=== PATIENT | male | born 1950 | race Caucasian/White ===

== ENCOUNTER 2016-04-28 21:43 | Outpatient (CLI) | payer OTHER | END 2016-04-28 21:44 | disposition home or self-care (01) | DX: G47.33 Obstructive sleep apnea (adult) (pediatric) (principal); G47.61 Periodic limb movement disorder; Z68.27 Body mass index [BMI] 27.0-27.9, adult ==

== ENCOUNTER 2016-05-19 11:11 | Outpatient (CLI) | payer OTHER | END 2016-05-19 11:12 | disposition home or self-care (01) | LOC: SC 11:11 | PROVIDERS: ATTEND Nurse Practitioner Family | DX: G47.33 Obstructive sleep apnea (adult) (pediatric) (principal); G47.61 Periodic limb movement disorder | CPT/HCPCS: 99212; 99214 ==

== ENCOUNTER 2016-06-15 19:30 | Outpatient (CLI) | payer OTHER | END 2016-06-15 19:31 | disposition home or self-care (01) | DX: G47.33 Obstructive sleep apnea (adult) (pediatric) (principal); G47.61 Periodic limb movement disorder; Z68.27 Body mass index [BMI] 27.0-27.9, adult ==

== ENCOUNTER 2016-07-06 09:14 | Outpatient (CLI) | payer OTHER | END 2016-07-06 09:15 | disposition home or self-care (01) | DX: G47.33 Obstructive sleep apnea (adult) (pediatric) (principal) ==

== ENCOUNTER 2016-08-16 09:13 | Outpatient (CLI) | payer OTHER | END 2016-08-16 09:14 | disposition home or self-care (01) | LOC: SC 09:13 | PROVIDERS: ATTEND Internal Medicine Pulmonary Disease | DX: G47.33 Obstructive sleep apnea (adult) (pediatric) (principal) | CPT/HCPCS: 99212; 99213 ==

== ENCOUNTER 2016-10-04 15:15 | Outpatient (CLI) | payer OTHER | END 2016-10-04 15:16 | disposition home or self-care (01) | LOC: SC 15:15 | PROVIDERS: ATTEND Internal Medicine Pulmonary Disease | DX: G47.33 Obstructive sleep apnea (adult) (pediatric) (principal) | CPT/HCPCS: 99212; 99213 ==

== ENCOUNTER 2016-12-20 15:11 | Outpatient (CLI) | payer OTHER | END 2016-12-20 15:12 | disposition home or self-care (01) | LOC: SC 15:11 | PROVIDERS: ATTEND Internal Medicine Pulmonary Disease | DX: G47.33 Obstructive sleep apnea (adult) (pediatric) (principal) | CPT/HCPCS: 99212; 99213 ==

== ENCOUNTER 2017-02-21 14:27 | Outpatient (CLI) | payer OTHER | END 2017-02-21 14:28 | disposition home or self-care (01) | LOC: SC 14:27 | PROVIDERS: ATTEND Internal Medicine Pulmonary Disease | DX: G47.33 Obstructive sleep apnea (adult) (pediatric) (principal) | CPT/HCPCS: 99212; 99213 ==

== ENCOUNTER 2019-01-23 11:23 | Outpatient (CLI) | payer MEDICARE, OTHER ==
--- NOTE | 2019-01-23 12:50 | SLEEP CARE CONSULTATION ---
Information from patient questionnaire entered by Kristie Lees. I have reviewed and concur with the information entered by Kristie Lees. This document represents the service I personally performed and the decisions made by me, Raissa Pa MD, [facility]. History of Present Illness Previous diagnosis: Moderate, Obstructive Sleep Apnea-Hypopnea Syndrome AHI: 21.6 Reason for CPAP/BiPAP follow up: annual Equipment type: CPAP Equipment obtained from: [employer] Mask style: Nasal Mask brand: Respironics HPI additional information: HPI: Mr. Uriarte was diagnosed to have moderate obstructive sleep apnea- hypopnea syndrome and returns today for follow up of CPAP therapy. The patient gets his supplies from [employer]. He wears a Respironics DreamWear nasal cushion mask. He continues to use the device nightly and all through the night. The compliance report shows that he uses the device 162 nights out of the past 180 nights, averaging 5.9 hours a night. He complains of air leaking into his right eye, but no particular problem with the device such as soreness on the face, dry nose, epistaxis, nasal congestion or headache. He thinks that the pressure of 9 - 15 cmH2O is too strong (increased from 8 12 cmH2O two years ago for elevated residual AHI of 13.2). On the CPAP therapy he notices improvement in his sleep quality, and that he wakes up feeling fresher in the morning and more awake/alert during the day. His notices no snore at all. [place] Sleepiness Scale score is 4. The average residual AHI is now 14.2; and average time in large leak per day is 6 seconds. The 90th percentile pressure is 12.5 cmH2O. CPAP Compliance Data - Data Reviewed with Patient Average duration of nightly device use: 5.9 Compliance rate %: 78.9 (180 days) Current pressure setting (cmH2O): 9-15 Humidity settin Heated hose settin Average residual AHI: 14.2 Average large leak: 6 secs Subjective Patient concerns: reports: air blowing in eyes, dry mouth, nose, throat Initial [place] Sleepiness Scale score: 7 Current [place] Sleepiness Scale score: 4 Allergies and Home Medications Drug allergies reviewed: Yes Home medication list reviewed: Yes Review of Systems Review of systems same as previous: Yes Physical Exam Weight: 185 lb Impression and Plan IMPRESSION: 1. Obstructive Sleep Apnea-Hypopnea Syndrome, moderate, with the patient continuing to do well on nasal CPAP therapy. He has excellent compliance and significant clinical benefits. The current pressure appears not quite effective and he complains of air coming out his right eye, probably through the tear duct. I will try the lower pressure range again at 5 - 10 cmH2 O. If the residual AHI remains high, another manual CPAP/BiPAP titration study will be ordered. PLAN: 1. Lower autoCPAP to 5 - 10 cm H2O via the modem. 2. Try a ResMed N30i mask. 3. Prescription made for supplies so that he may switch durable medical suppl ier. 4. Return in 2 months to check on pressure adjustment. I spent 100% of this 20 minute visit face to face with the patient with greater than 50% of this was spent time counseling the patient and coordination of care.
== END 2019-01-23 11:24 | disposition home or self-care (01) ==
LOC: SC 11:23
PROVIDERS: ATTEND Internal Medicine Pulmonary Disease
DX: G47.33 Obstructive sleep apnea (adult) (pediatric) (principal)
CPT/HCPCS: 99213; G0463; 99212

== ENCOUNTER 2019-03-27 08:56 | Outpatient (CLI) | payer MEDICARE, OTHER ==
--- NOTE | 2019-03-27 13:08 | SLEEP CARE CONSULTATION ---
Information from patient questionnaire entered by Kristie Lees. I have reviewed and concur with the information entered by Kristie Lees. This document represents the service I personally performed and the decisions made by me, Raissa Pa MD, [facility]. History of Present Illness Previous diagnosis: Moderate, Obstructive Sleep Apnea-Hypopnea Syndrome Reason for follow up: other (2 month) Equipment type: CPAP Equipment obtained from: [employer] Mask style: Nasal HPI additional information: HPI: Mr. Uriarte was diagnosed to have moderate obstructive sleep apnea- hypopnea syndrome and returns today for follow up of CPAP therapy after pressure change 2 months ago. The patient now gets his supplies from [employer] (was [facility]). He also switched from Respironics DreamWear nasal cushion mask to ResMed N30i mask. He continues to use the device nightly and all through the night. The compliance report shows that he uses the device 53 nights out of the past 60 nights, averaging 5.8 hours a night. He complained of air leaking into his right eye which resolved with dropping the pressure range from 9 15 cmH2O to 5 10 cmH2O. No particular problem with the device such as soreness on the face, dry nose, epistaxis, nasal congestion or headache. He thinks that the pressure of 5 10 cmH2O is comfortable. On the CPAP therapy he notices improvement in his sleep quality, and that he wakes up feeling fresher in the morning and more awake/alert during the day. His notices no snore at all. [place] Sleepiness Scale score is 2. The average residual AHI is now 20 (was 14.2); and average time in large leak per day is 1 second. The 90th percentile pressure is 9.9 cmH2O. CPAP Compliance Data - Data Reviewed with Patient Average duration of nightly device use: 5.75 Compliance rate %: 73.3 (60 days) Current pressure setting (cmH2O): 5-10 Humidity settin Heated hose settin Average residual AHI: 20.0 Average large leak: 1 sec Subjective Patient concerns: reports: dry mouth, nose, throat Initial [place] Sleepiness Scale score: 7 Current [place] Sleepiness Scale score: 2 Allergies and Home Medications Drug allergies reviewed: Yes Home medication list reviewed: Yes Review of Systems Review of systems same as previous: Yes Physical Exam Weight: 180 lb Impression and Plan IMPRESSION: 1. Obstructive Sleep Apnea-Hypopnea Syndrome, moderate, with the patient continuing to do well on nasal CPAP therapy. He has excellent compliance and significant clinical benefits. The current pressure appears less effective but prevented air leaking into his eyes via the tear ducts. I will raise the pressure up slight to 8 - 12 cmH2O. If he starts to have problems with his eyes again, I will lower it back down. PLAN: 1. Increase autoCPAP to 8 - 12 cm H2O. Prescription made. 2. Return for follow up in a year or earlier if there is any problem. He will call if the pressure does not feel right. I spent 100% of this visit face to face with the patient with greater than 50% of this was spent time counseling the patient and coordination of care.
== END 2019-03-27 08:57 | disposition home or self-care (01) ==
LOC: SC 08:56
PROVIDERS: ATTEND Internal Medicine Pulmonary Disease
DX: G47.33 Obstructive sleep apnea (adult) (pediatric) (principal)
CPT/HCPCS: 99213; G0463; 99212

== ENCOUNTER 2020-03-24 13:03 | Outpatient (CLI) | payer MEDICARE, OTHER ==
--- NOTE | 2020-03-24 13:47 | SLEEP CARE CONSULTATION ---
Information from patient questionnaire entered by Kristie Lees. I have reviewed and concur with the information entered by Kristie Lees. This document represents the service I personally performed and the decisions made by me, Raissa Pa MD, [facility]. History of Present Illness Service Date and Time: 03/24/2020 1303 Previous diagnosis: Moderate, Obstructive Sleep Apnea-Hypopnea Syndrome AHI: 21.6 (in 2017) Reason for follow up: annual (last seen 03/2019) Equipment type: CPAP Equipment obtained from: [employer] Mask style: Nasal Prior sleep studies: Yes Year and Where: 2017 [facility] Type of Sleep Study: Polysomnography HPI additional information: HPI: Mr. Uriarte was diagnosed to have moderate obstructive sleep apnea- hypopnea syndrome and returns today for annual follow up of CPAP therapy. The patient now gets his supplies from [employer] (was [facility]). He wears ResMed N30i mask. He continues to use the device nightly and all through the night. The compliance report shows that he uses the device 142 nights out of the past 180 nights, averaging 4.5 hours a night. The > 4 hour compliance rate for the past 30 days is 47.8%. He feels that the pressure at 8 - 12 cmH2O is comfortable . No particular problem with the device such as soreness on the face, dry nose, epistaxis, nasal congestion or headache. On the CPAP therapy he notices improvement in his sleep quality, and that he wakes up feeling fresher in the morning and more awake/alert during the day. His notices no snore at all. [place] Sleepiness Scale score is 2. The average residual AHI is now 31.2 (was 20); and average time in large leak per day is 1 second. The 90th percentile pressure is 9.9 cmH2O. CPAP Compliance Data - Data Reviewed with Patient Average duration of nightly device use: 4 hr 39 min Compliance rate %: 60 (30 days)(47.8 for 180) Current pressure setting (cmH2O): 8-12 Humidity settin Heated hose settin Average residual AHI: 27.5 Average large leak: 0 Subjective Missed days of use due to: reports: illness Current pressure setting perceived as: comfortable Initial [place] Sleepiness Scale score: 7 (in 2016) Current [place] Sleepiness Scale score: 2 Allergies and Home Medications Drug allergies reviewed: Yes Home medication list reviewed: Yes Review of Systems Review of systems same as previous: Yes Physical Exam Vital signs obtained and entered by: To minimize the risk of COVID-19 exposure, detailed exam was not performed. Height: 5 ft 9 in Weight: 180 lb Body Mass Index: 26.6 BMI Classification: Overweight Impression and Plan IMPRESSION: 1. Obstructive Sleep Apnea-Hypopnea Syndrome, moderate, with the patient continuing to do well on nasal CPAP therapy. He has excellent compliance and significant clinical benefits. The current higher pressure appears less effective. I will lower it back down to 5 10 cmH2O where is residual AHI was < 20. PLAN: 1. Lower autoCPAP to 5 - 10 cm H2O. Prescription made. 2. Return for follow up in a year or earlier if there is any problem. He will call if the pressure does not feel right. Visit Type: In Office Time Spent with Patient (minutes): 15 Provider Statement: I spent 100% of the Face to Face Visit with the patient with greater than 50% spent counseling the patient and coordination of care.
== END 2020-03-24 13:04 | disposition home or self-care (01) ==
LOC: SC 13:03
PROVIDERS: ATTEND Internal Medicine Pulmonary Disease
DX: G47.33 Obstructive sleep apnea (adult) (pediatric) (principal); E66.3 Overweight; Z68.26 Body mass index [BMI] 26.0-26.9, adult
CPT/HCPCS: 99213; G0463; 99212

== ENCOUNTER 2021-08-18 08:24 | Outpatient (CLI) | payer MEDICARE, OTHER ==
[2021-08-18 09:09] VITALS: BP 124/71
--- NOTE | 2021-08-18 09:09 | SLEEP CARE CONSULTATION ---
Information from patient questionnaire entered by Gurmeet Phillips MA. I have reviewed and concur with the information entered by Gurmeet Phillips MA. This document represents the service I personally performed and the decisions made by , Sophie Jim ARNP. History of Present Illness Service Date and Time: 08/18/2021 0824 Previous diagnosis: Moderate, Obstructive Sleep Apnea-Hypopnea Syndrome AHI: 21.6 (in 2016) Reason for follow up: annual (LAST SEEN 03/2020, STORM,) Equipment type: CPAP Equipment obtained from: [employer] (getting supplies as needed) Mask style: Nasal Backup mask available: Yes (old mask) Last cushion change: 1 month Prior sleep studies: Yes Year and Where: 2016 - [facility] Type of Sleep Study: Polysomnography HPI additional information: NNEKA PEREZ was diagnosed to have moderate, AHI 21.6, obstructive sleep apnea-hypopnea syndrome and returned today for CPAP therapy annual follow-up. Sleep Study - Results Type of Sleep Study: Polysomnography Prior sleep studies: Yes Year and Where: 2016 - [facility] CPAP Compliance Data - Data Reviewed with Patient Average duration of nightly device use: 4 HOURS 30 MINUTES Compliance rate %: 38.9 (180 days ) Current pressure setting (cmH2O): 5-10 Humidity settin Heated hose settin Average residual AHI: 40.6 Average large leak: 49 SECONDS Subjective Missed days of use due to: reports: travel, other (pressure issues) Patient concerns: reports: dry mouth, nose, throat (Fortino-Ease given and explained use). denies: aerophagia, mask discomfort, air blowing in eyes, mask leak noise, condensation in mask/hose, nasal congestion, epistaxis, other Current pressure setting perceived as: too low On therapy, patient: reports: other (he feels he is sleeping worse because of repeated wakeups, mask issues, low pressure feeling) Initial [place] Sleepiness Scale score: 7 (in 2015) Current [place] Sleepiness Scale score: 3 (08/2021) Allergies and Home Medications Home medication list reviewed: Yes (no changes) Review of Systems Review of systems same as previous: Yes (no changes) Physical Exam Vital signs obtained and entered by: Win PHILLIPS CMA AAPA Blood Pressure: 124/71 (RIGHT, PULSE 54, RESP 18, ) Heart Rate: 65 O2 Saturation: 97 (N95) Height: 5 ft 9 in Weight: 184 lb (WITH CLOTHES) Body Mass Index: 27.1 BMI Classification: Overweight Impression and Plan 1. Obstructive Sleep Apnea-Hypopnea Syndrome, moderate, with poor treatment compliance and fair apnea control with elevated residual AHI. On CPAP therapy, the patient has been not sleeping as well because he is feeling like he is suffocating and needs more air. He will take mask off and sleep better without it recently. The patients pressure will be changed to autoCPAP 9-15 cmH20 for elevation of residual AHI. Patient advised to contact me if pressure change is uncomfortable so that it can be adjusted. Goals for apnea control discussed. He has been having some nasal dryness and feels he would do better with a full face mask instead of a nasal cushion mask. Nasal dryness can be reduced with increasing the CPAP humidity as shown on sample device and the heated hose can be increased if condensation. In addition, I gave the patient a few samples of Fortino Ease nasal cream to be used 4 times a day for 7-10 days and then as needed. We will also order a mask refitting for a full face mask. Patient has a Dreamstation. Patient has already registered their device for the recall. Since the patients current machine is at least 5 years old, the patient is opting to update their device with a device that is not on the recall. Thus, the CPAP will be updated. The new CPAPs also have a better humidity system which could assist control of patients dryness symptoms. A DWO prescription will be made. Compliance guidelines for new device and follow up discussed. Patient voiced understanding and agreement with plan. Patient's apnea severity and rationale for treatment to reduce apnea, improve sleep quality and reduce cardiovascular and cerebrovascular events was reviewed. I also reviewed the benefit of consistent device use of CPAP for hypertension and cardiac disease. He was encouraged to lose weight to improve his overall health and reduce apneas. * Update device * Update supplies as needed * Mask refitting for a full face mask * Change auto CPAP pressure to 9-15 cmH2O * Notify me if snoring with mask or feeling that the pressure is too much or too little * Attempt to lose weight * Call this office if any problems using CPAP * Return for follow up one month after obtaining new device, or sooner if concerns arise Counseling Topics: Spare mask Visit Type: In Office Time Spent with Patient (minutes): 24 Provider Statement: I spent 100% of the Face to Face Visit with the patient with greater than 50% spent counseling the patient and coordination of care.
== END 2021-08-18 08:25 | disposition home or self-care (01) ==
LOC: SC 08:24
PROVIDERS: ATTEND Internal Medicine Pulmonary Disease
DX: G47.33 Obstructive sleep apnea (adult) (pediatric) (principal); E66.3 Overweight; Z68.27 Body mass index [BMI] 27.0-27.9, adult
CPT/HCPCS: 99213; G0463; 99212

== ENCOUNTER 2021-10-19 09:32 | Outpatient (CLI) | payer MEDICARE, OTHER ==
[2021-10-19 09:56] VITALS: BP 144/70
--- NOTE | 2021-10-19 09:56 | SLEEP CARE CONSULTATION ---
Information from patient questionnaire entered by Ada Monge. I have reviewed and concur with the information entered by Ada Monge. This document represents the service I personally performed and the decisions made by me, Raissa Pa MD, [facility]. History of Present Illness Service Date and Time: 10/19/2021 0932 Previous diagnosis: Moderate, Obstructive Sleep Apnea-Hypopnea Syndrome AHI: 21.6 (in 2017) Reason for follow up: first compliance (FIRST COMPLIANCE, SET UP 09/04, RESMED) Equipment type: CPAP Equipment obtained from: [employer] (getting supplies as needed) Mask style: Nasal Prior sleep studies: Yes Year and Where: 2016 - [facility] Type of Sleep Study: Polysomnography (2 MONTH F/U) HPI additional information: Mr. Uriarte was diagnosed to have moderate obstructive sleep apnea-hypopnea syndrome and returns today for annual follow up of CPAP therapy. The patient recently acquired a new ResMed AirSense 11 from [employer] ([employer]. He wears ResMed AirFit F20 full face mask now. He uses the device nightly and all through the night. The compliance report shows that he uses the device 30 nights out of the past 30 nights, averaging 6.5 hours a night. The > 4 hour compliance rate for the past 30 days is 100%. He feels that the pressure at 9 - 15 cmH2O is comfortable. No particular problem with the device such as soreness on the face, dry nose, epistaxis, nasal congestion or headache. On the CPAP therapy he notices improvement in his sleep quality, and that he wakes up feeling fresher in the morning and more awake/alert during the day. His notices no snore at all. [place] Sleepiness Scale score is 2. The average residual AHI is now 21.7 (was 31.2) with most of the residual respiratory events being central apneas. The average air leak is 1.8 L/minute. The 90th percentile pressure is 12 cmH2O. Sleep Study - Results Type of Sleep Study: Polysomnography Prior sleep studies: Yes Year and Where: 2016 - [facility] Subjective Initial [place] Sleepiness Scale score: 7 (in 2016) Allergies and Home Medications Drug allergies reviewed: Yes Home medication list reviewed: Yes Review of Systems Review of systems same as previous: Yes Physical Exam Vital signs obtained and entered by: N.BYNG, [employer] Blood Pressure: 144/70 (left arm ) Cuff size: regular Heart Rate: 50 O2 Saturation: 96 Height: 5 ft 8 in Weight: 178 lb Body Mass Index: 27.0 BMI Classification: Overweight Impression and Plan IMPRESSION: 1. Obstructive Sleep Apnea-Hypopnea Syndrome, moderate, with the patient continuing to do well on nasal CPAP therapy. He has excellent compliance and significant clinical benefits. The frequent central apneas probably occur in the morning when he wakes up but keeps the device going. No adjustment is necessary today. PLAN: 1. Leave autoCPAP at 9 - 15 cm H2O. Prescription made. 2. Try the AirTouch cushion. 3. Return for follow up in a year or earlier if there is any problem. Follow up with Sleep Care in: 1 year Visit Type: In Office Time Spent with Patient (minutes): 20 Provider Statement: I spent 100% of the Face to Face Visit with the patient with greater than 50% spent counseling the patient and coordination of care.
== END 2021-10-19 09:33 | disposition home or self-care (01) ==
LOC: SC 09:32
PROVIDERS: ATTEND Internal Medicine Pulmonary Disease
DX: G47.33 Obstructive sleep apnea (adult) (pediatric) (principal); E66.3 Overweight; Z68.27 Body mass index [BMI] 27.0-27.9, adult
CPT/HCPCS: 99213; G0463; 99212

== ENCOUNTER 2023-03-26 12:01 | Outpatient (CLI) | payer MEDICARE, OTHER ==
[2023-03-26 19:20] LABS: ALBUMIN/GLOBULIN RATIO 1.8 (1.0-2.2); BILIRUBIN,TOTAL 0.6 mg/dL (0.2-1.0); CALCIUM 9.3 mg/dL (8.5-10.3); CREATININE 1.2 mg/dL (0.6-1.3); POTASSIUM 3.7 mmol/L (3.5-4.5); TOTAL PROTEIN 6.2 g/dL (6.4-8.9)
[2023-03-26 19:25] LABS: BASOPHILS % (AUTO) 0.6 %; EOSINOPHILS % (AUTO) 0.6 %; HCT - HEMATOCRIT 44.2 % (42.0-52.0); HGB - HEMOGLOBIN 14.4 g/dL (14.0-18.0); LYMPHOCYTES % (AUTO) 15.2 %; MEAN CORPUSCULAR HEMOGLOBIN 29.5 pg (27.0-31.0); MEAN CORPUSCULAR HGB CONC 32.6 g/dL (32.0-36.0); MEAN CORPUSCULAR VOLUME 90.6 fL (80.0-94.0); MEAN PLATELET VOLUME 10.7 fL (7.4-11.4); MONOCYTES # (AUTO) 0.8 10^3/uL (0.0-1.0); MONOCYTES % (AUTO) 11.9 %; NEUTROPHILS # (AUTO) 4.8 10^3/uL (1.5-6.6); NEUTROPHILS % (AUTO) 70.4 %; PLT - PLATELET COUNT 245 10^3/uL (130-450); RED BLOOD COUNT 4.88 10^6/uL (4.70-6.10); RED CELL DISTRIBUTION WIDTH 13.7 % (12.0-15.0); WHITE BLOOD COUNT 6.8 x10^3/uL (4.8-10.8)
[2023-03-26 19:38] LABS: THYROID STIMULATING HORMONE 2.19 uIU/mL (0.34-5.60)
== END 2023-03-26 12:02 | disposition home or self-care (01) ==
LOC: LAB.N 12:01
PROVIDERS: ATTEND Family Medicine
DX: R53.83 Other fatigue (principal)
CPT/HCPCS: 36415; 80053; 84403; 84443; 85025